=== PATIENT | female | born 1955 | race Caucasian/White ===

== ENCOUNTER 2018-02-12 20:04 | Emergency (ER) | payer BC ==
--- NOTE | 2018-02-12 20:12 | Emergency Department Record ---
History of Present Illness - General Chief Complaint: Palpitations Stated Complaint: HIGH BP/RAPID HEART RATE Time Seen by Provider: 02/12/18 20:12 Source: Patient, Family Mode of Arrival: Ambulatory Limitations: No limitations - History of Present Illness Initial Comments: 62 yo female presents with concerns about her blood pressure and palpitations. She states for about 6 months she has felt fatigue. 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 She is very tired. She does consume regular amount of caffeine to help her. She notices occasion brief irregular heart beats. On Wednesday she checked her blood pressure and it was elevated. She has checked it on many occasions and it has remained elevated. She has not seen a PCP for about 3 years. No current medications. She is a smoker. MD Complaint: Palpitations -: Days(s) Context: Occurred during rest, Other Associated Symptoms: Denies other symptoms - Related Data Home Medications Medication Instructions Recorded Confirmed Last Taken No Home Med [NO HOME MEDS] 02/12/18 02/12/18 Unknown Allergies Allergy/AdvReac Type Severity Reaction Status Date / Time No Known Drug Allergies Allergy Unknown Unverified 01/08/14 10:15 [NO KNOWN DRUG ALLERGIES] Review of Systems Constitutional: Denies: Chills, Fever, Malaise, Night sweats, Weakness Eyes: Denies: Eye discharge, Eye pain, Photophobia, Vision change ENT: Denies: Congestion, Throat pain Respiratory: Denies: Cough, Dyspnea, Hemoptysis, Stridor, Wheezes Cardiovascular: Reports: Palpitations. Denies: Arrhythmia, Chest pain, Dyspnea on exertion, Edema, Orthopnea, Syncope Endocrine: Reports: Fatigue (works over 100 hours a week). Denies: Polydipsia, Polyuria Gastrointestinal: Denies: Abdominal pain, Diarrhea, Nausea, Vomiting Genitourinary: Denies: Dyspareunia, Dysuria, Urgency Musculoskeletal: Denies: Arthralgia, Back pain, Joint swelling, Myalgia Skin: Denies: Bruising, Change in color, Rash Neurological: Denies: Confusion, Headache, Numbness, Tingling, Weakness Psychiatric: Reports: Anxiety Hematological/Lymphatic: Denies: Easy bleeding, Easy bruising, Swollen glands Physical Exam - General General Appearance: Alert, Oriented x3, Cooperative, No acute distress Limitations: No limitations - Head Head exam: Normal inspection - Eye Eye exam: Normal appearance. negative: Conjunctival injection, Scleral icterus - ENT ENT exam: Normal exam, Mucous membranes moist Ear exam: Normal external inspection Nasal Exam: Normal inspection Mouth exam: Normal external inspection Teeth exam: Normal inspection Throat exam: Normal inspection - Neck Neck exam: Normal inspection, Full ROM. negative: Tenderness - Respiratory Respiratory exam: Normal lung sounds bilaterally. negative: Respiratory distress - Cardiovascular Cardiovascular Exam: Regular rate, Normal rhythm, Normal heart sounds. negative : Diastolic murmur, Irregular rhythm, Systolic murmur Peripheral Pulses: 2+: Radial (R), Radial (L) - GI/Abdominal GI/Abdominal exam: Soft. negative: Tenderness - Rectal Rectal exam: Deferred - exam: Deferred - Extremities Extremities exam: Normal inspection, Full ROM, Normal capillary refill. negative: Calf tenderness, Joint swelling, Pedal edema, Tenderness - Back Back exam: Denies: CVA tenderness (R), CVA tenderness (L) - Neurological Neurological exam: Alert, Normal gait, Oriented X3. negative: Motor sensory deficit - Psychiatric Psychiatric exam: Normal affect, Normal mood - Skin Skin exam: Dry, Intact, Normal color, Warm Course Vital Signs 02/12/18 20:08 Temperature 98.4 F Pulse Rate [ 74 Pulse Ox Probe] Respiratory 20 Rate Blood Pressure 171/94 [Left Arm] Pulse Ox 96 - Reevaluation(s) Reevaluation #1: 02/12/18 20:28 EKG NSR rate is 67 intervals and axis normal. Normal ST. No acute changes. 02/12/18 22:41 The labs were reviewed No acute changes The K was 3.3. She was given supplementation in the ED We discussed K rish foods BP improved to 154/90 She is asymptomatic She was referred to cardiology for her palpitations and HTN She is calling for a new PCP She was advised to stop or minimize smoking and avoid excessive caffeine. The UA was reviewed with her. She is asymptomatic. Culture sent Medical Decision Making - Lab Data Result diagrams: 02/12/18 20:30 02/12/18 20:30 Disposition Disposition: Discharge Clinical Impression: Heart palpitations, Elevated blood pressure reading Disposition: Home, Self-Care Condition: (1) Good Instructions: Heart Palpitations (ED), Hypokalemia (ED), Hypertension (ED) Additional Instructions: You will be called for an appointment first of the week with cardiology at the [facility] Return immediately if you have chest pain, rapid heart rate, short of breath or any concerns Minimize caffeine and smoking. Referrals: BROCK PELAYO M.D. [MEDICAL DOCTOR] - [facility] [Provider Group] Forms: Patient Portal Access Time of Disposition: 22:13 Quality - Quality Measures Quality Measures: N/A - Blood Pressure Screening Does Patient Have Any of the Following: No Blood Pressure Classification: Hypertensive Reading Systolic Measurement: 154 Diastolic Measurement: 90 Screening for High Blood Pressure: < Pre-Hypertensive BP, F/U Documented > [ [id number]] Pre-Hypertensive Follow-up Interventions: Referral to alternative/primary care provider.
[2018-02-12 20:53] LABS: BASO % 0.4 % (0-6); EOS % 1.5 % (0-6); HEMATOCRIT 40.4 % (35.0-47.0); HEMOGLOBIN 13.7 gm/dl (11.6-16.0); LYMPH % 32.3 % (16-45); MEAN CELL VOLUME 99.8 fl (81-97); MEAN CORPUSCULAR HEMOGLOBIN 33.8 pg (27-33); MEAN CORPUSCULAR HGB CONC 33.9 g/dl (32-36); MEAN PLATELET VOLUME 9.3 fl (7.4-10.4); MONO % 6.8 % (0-9); PLATELET COUNT 334 K/uL (130-400); RED BLOOD COUNT 4.05 M/uL (3.80-5.40); RED CELL DISTRIBUTION WIDTH 12.1 % (11.5-14.5); WHITE BLOOD COUNT W/O DIFF 10.6 K/uL (4.2-12.2)
[2018-02-12 21:42] LABS: URINE APPEARANCE CLEAR; URINE BILIRUBIN NEGATIVE (NEGATIVE); URINE BLOOD NEGATIVE (NEGATIVE); URINE COLOR YELLOW; URINE GLUCOSE (UA) NEGATIVE (NEGATIVE); URINE KETONE NEGATIVE (NEGATIVE); URINE LEUKOCYTE ESTERASE SMALL (NEGATIVE); URINE NITRITE NEGATIVE (NEGATIVE); URINE PROTEIN NEGATIVE (NEGATIVE); URINE UROBILINOGEN 0.2 E.U./dL (0.20 - 1.00)
[2018-02-12 21:44] LABS: THYROID STIMULATING HORMONE 1.79 uIU/mL (0.270-4.20)
[2018-02-12 21:50] LABS: BLOOD UREA NITROGEN 12 mg/dL (8-23); CREATININE 0.8 mg/dL (0.5-0.9); EST GLOMERULAR FILTRATION RATE > 60 mL/min; GLUCOSE,RANDOM 83 mg/dL (74-109)
[2018-02-12 21:51] LABS: ALKALINE PHOSPHATASE 63 U/L (35-104); ALT/SGPT 11 U/L (<33); AST/SGOT 18 U/L (10.0-35.0); BILIRUBIN,DIRECT < 0.1 mg/dL (0-0.3)
[2018-02-12 21:54] LABS: URINE BACTERIA FEW; URINE EPITHELIAL CELLS 0 - 2 (FEW); URINE RBC 0 - 2 (NONE SEEN); URINE WBC 0 - 2 (0-2/hpf)
[2018-02-12] MEDS: POTASSIUM BICARB./CIT AC 25 MEQ EFF.TAB PO STA (22:21)
== END 2018-02-12 22:37 | disposition home or self-care (01) ==
LOC: ER 20:04
DX: R00.2 Palpitations (principal); R53.83 Other fatigue; R03.0 Elevated blood-pressure reading, without diagnosis of hypertension; E87.6 Hypokalemia
CPT/HCPCS: 80048; 80076; 81001; 83735; 84443; 84484; 85025; 93005; 93010; 99284